=== PATIENT | male | born 1985 | race Caucasian/White ===

== ENCOUNTER 2018-01-13 11:22 | Emergency (ER) | payer SELFPAY ==
[2018-01-13 11:28] VITALS: BP 129/72
[2018-01-13] MEDS ORDERED: PROPARACAINE 0.5% 15 ML OPHT DROP ONE (11:36)
[2018-01-13] MEDS ORDERED: FLUORESCEIN SOD/BENOXINATE HCL 20 DROPS/ML OPHT.BTL ONE (11:36)
--- NOTE | 2018-01-13 11:55 | EDPHY ---
H & P Time Seen by Provider: 01/13/18 11:33 HPI/ROS: CHIEF COMPLAINT: Right eye pain HISTORY OF PRESENT ILLNESS: Patient is a 32-year-old male presents emergency department with right eye pain x3 days. 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 He did not work with any metal and denies any grinding or use with the power tool. The patient states he has had increased blurriness of his right eye. He also has pain and a foreign body sensation. His pain is moderate. No previous eye surgeries. REVIEW OF SYSTEMS: Negative Past Medical/Surgical History: Denies Smoking Status: Never smoked Physical Exam: GENERAL: Well-appearing, in no acute distress, alert. Visual acuity: Noted. Poor vision in the right eye. Eyelids: Normal inspection, everted for exam. Conjunctiva and sclera: Normal inspection. No foreign material. No subconjunctival hemorrhage. No exudate. Not injected. Corneas: Patient has a metallic appearing foreign body in his right eye. There is a small surrounding rust ring. There seems to be mild opacification of the pupil. Because I see the obvious foreign body I do not use floor seen. EOMs: Intact. Pupils: PERRL, normal accommodation. Anterior chambers: Normal inspection. No hyphema. Posterior segments: Normal funduscopic exam Constitutional: Initial Vital Signs Temperature (C) 36.6 C 01/13/18 11:23 Heart Rate 75 01/13/18 11:23 Respiratory Rate 16 01/13/18 11:23 Blood Pressure 129/72 H 01/13/18 11:23 O2 Sat (%) 98 01/13/18 11:23 O2 Delivery Mode Room Air Allergies/Adverse Reactions: No Known Allergies Allergy (Unverified 01/13/18 11:27) Home Medications: Medication Instructions Recorded Raymond/Polymyx B Sulf/Dexameth 2 drops OP Q3 3 Days opht.btl 01/13/18 [Maxitrol Opht Drops (*)] Medical Decision Making ED Course/Re-evaluation: In the emergency department I discussed findings with the patient. I answered all his questions. I paged Ophthalmology. I discussed the case with Dr. Padgett him. He requests the patient be started on Maxitrol and cm in his office 1st thing tomorrow morning. I discussed the plan with the patient. I gave him warnings prior to leaving. He will go to Dr. Doran's office at 8:00 a.m. Tomorrow morning.. Differential Diagnosis: My differential includes but is not limited to foreign body, rust ring, ulceration, globe rupture, infection, abscess Departure - Departure Disposition: Home, Routine, Self-Care Clinical Impression: Corneal abrasion Qualifiers: Encounter type: initial encounter Laterality: right Qualified Code(s): S05.01XA - Injury of conjunctiva and corneal abrasion without foreign body, right eye, initial encounter Eye foreign body Qualifiers: Encounter type: initial encounter Laterality: right Qualified Code(s): T15.91XA - Foreign body on external eye, part unspecified, right eye, initial encounter Condition: Good Instructions: Eye Foreign Body (ED) Additional Instructions: You are to go directly to the administrative services coordinator's office to have your eye examined Referrals: Deborah Doran MD [Medical Doctor] - 01/14/18 8:00 am Prescriptions: Raymond/Polymyx B Sulf/Dexameth [Maxitrol Opht Drops (*)] 2 drops OP Q3 3 Days opht.btl
== END 2018-01-13 12:15 | disposition home or self-care (01) ==
DX: S05.01XA Injury of conjunctiva and corneal abrasion without foreign body, right eye, initial encounter (principal); T15.91XA Foreign body on external eye, part unspecified, right eye, initial encounter; X58.XXXA Exposure to other specified factors, initial encounter; Y99.8 Other external cause status; Y93.89 Activity, other specified